=== PATIENT | male | born 1990 | race Caucasian/White ===

== ENCOUNTER 2025-01-08 00:40 | Emergency (ER) | payer BC ==
[~2025-01-08] VITALS: Ht 182.8 cm; Wt 68.0 kg
[2025-01-08 01:20] LABS: BASO # 0.1 10*3/uL (0.0-0.1); BASO % 1.4 % (0.0-1.0); EOS # 0.3 10*3/uL (0.0-0.4); EOS % 3.7 % (1.0-4.0); MEAN CELL VOLUME 88.9 fl (80.0-94.0); MEAN CORPUSCULAR HGB 29.1 pg (27.0-31.0); MEAN PLATELET VOLUME 9.3 fl (9.6-12.3); MONO # 0.6 10*3/uL (0.1-1.0); MONO % 6.9 % (3.0-9.0); NEUT # 3.1 10*3/uL (2.3-7.9); NEUT % 35.3 % (47.0-73.0); NUCLEATED RED BLOOD CELL 0.0 % (0.0-0.0); NUCLEATED RED BLOOD CELL 0.0 10*3/uL (0.0-0.0); PLATELET COUNT AUTOMATED 289 10*3/uL (130-400); RED CELL DISTRI WIDTH 12.2 % (0-14.5)
== END 2025-01-08 02:08 | disposition home or self-care (01) ==
LOC: ED 00:40
PROVIDERS: Internal Medicine
DX: K64.4 Residual hemorrhoidal skin tags (principal); K64.8 Other hemorrhoids